=== PATIENT | female | born 1940 | race Caucasian/White ===

== ENCOUNTER 2018-11-30 13:20 | Emergency (ER) | payer MEDICARE ==
[2018-11-30 13:28] VITALS: BP 147/80
--- NOTE | 2018-11-30 14:11 | ER Document Report ---
ED Medical Screen (RME) - General Chief Complaint: Arm Pain Stated Complaint: LEFT ARM AND LEFT KNEE PAIN Time Seen by Provider: 11/30/18 13:54 Mode of Arrival: Ambulatory Information source: Patient Notes: 78-year-old female presents the emergency department with complaints of left arm pain, left leg pain, left knee pain. Patient states that a year ago she missed 3 steps and fell landing on her left side. She states that she has been have chronic pain ever since. Patient states that she does get steroid injections into her shoulder. Her last injection was 3 months ago. Patient states that she is having worsening pain in the left arm and thinks she needs another injection. She's from out of town and has no one to follow up with. She states that the Left shoulder pain is different from previous. It's now radiating across her back and into the right shoulder blade. Patient does complain of some left-sided chest pain. Patient has also noticed her left knee to be swollen. She denies any trauma or injury but has been walking more than normal. I have greeted and performed a rapid initial assessment of this patient. A comprehensive ED assessment and evaluation of the patient, analysis of test results and completion of the medical decision making process will be conducted by additional ED providers. PHYSICAL EXAMINATION: GENERAL: Well-appearing, well-nourished and in no acute distress. HEAD: Atraumatic, normocephalic. EYES: Pupils equal round extraocular movements intact, conjunctiva are normal. ENT: Nares patent NECK: Normal range of motion LUNGS: No respiratory distress. Anterior chest wall tenderness to palpation. Musculoskeletal: Decreased ROM of the L shoulder secondary to pain. Bilateral trapezius muscle tenderness to palpation. L knee tenderness to palpation. NEUROLOGICAL: Normal speech. PSYCH: Normal mood, normal affect. SKIN: Warm, Dry, normal turgor, no rashes or lesions noted. - Related Data Allergies/Adverse Reactions: No Known Allergies Allergy (Unverified 11/30/18 13:23) Past Medical History Renal/ Medical History: Denies: Hx Peritoneal Dialysis Physical Exam - Vital signs Vitals: Temp Pulse Resp BP Pulse Ox 98.0 F 108 H 24 H 147/80 H 96 11/30/18 13:27 11/30/18 13:27 11/30/18 13:27 11/30/18 13:27 11/30/18 13:27 Course - Vital Signs Vital signs: Temp Pulse Resp BP Pulse Ox 98.0 F 108 H 24 H 147/80 H 96 11/30/18 13:27 11/30/18 13:27 11/30/18 13:27 11/30/18 13:27 11/30/18 13:27
[2018-11-30 14:33] LABS: ABSOLUTE BASOPHILS # (AUTO) 0.1 10^3/uL (0.0-0.2); ABSOLUTE EOSINOPHILS # (AUTO) 0.2 10^3/uL (0.0-0.6); ABSOLUTE LYMPHOCYTES (AUTO) 1.5 10^3/uL (0.5-4.7); ABSOLUTE MONOCYTES (AUTO) 0.6 10^3/uL (0.1-1.4); ABSOLUTE NEUT (AUTO) 5.3 10^3/uL (1.7-8.2); BASOPHILS % (AUTO) 0.8 % (0-2); HEMATOCRIT 39.2 % (36.0-47.0); MEAN CORPUSCULAR HEMOGLOBIN 31.6 pg (27.0-33.4); MEAN CORPUSCULAR HGB CONC 33.1 g/dL (32.0-36.0); MEAN CORPUSCULAR VOLUME 95 fl (80-97); MONOCYTES % (AUTO) 8.3 % (3-13); PLATELET COUNT 264 10^3/uL (150-450); RED BLOOD COUNT 4.11 10^6/uL (3.72-5.28); RED CELL DISTRIBUTION WIDTH 13.4 % (11.5-14.0); SEGMENTED NEUTROPHILS % (AUTO) 68.9 % (42-78); TOTAL CELLS COUNTED % (AUTO) 100 %; WHITE BLOOD COUNT 7.7 10^3/uL (4.0-10.5)
[2018-11-30 14:54] LABS: ALANINE AMINOTRANSFERASE 25 U/L (9-52); ALBUMIN 4.2 g/dL (3.5-5.0); ALKALINE PHOSPHATASE 81 U/L (38-126); ANION GAP 10 (5-19); ASPARTATE AMINO TRANSFERASE 24 U/L (14-36); BILIRUBIN,DIRECT 0.2 mg/dL (0.0-0.4); BILIRUBIN,TOTAL 0.4 mg/dL (0.2-1.3); BLOOD UREA NITROGEN 25 mg/dL (7-20); CALCIUM 9.7 mg/dL (8.4-10.2); CARBON DIOXIDE 27 mmol/L (22-30); CHLORIDE 106 mmol/L (98-107); GLUCOSE 125 mg/dL (75-110); POTASSIUM 4.6 mmol/L (3.6-5.0); SODIUM 143.3 mmol/L (137-145); TOTAL PROTEIN 6.8 g/dL (6.3-8.2)
--- NOTE | 2018-11-30 14:59 | RADIOLOGY REPORT (SQ) ---
EXAM DESCRIPTION: CHEST SINGLE VIEW COMPLETED DATE/TIME: 11/30/2018 2:50 pm REASON FOR STUDY: L shoulder pain COMPARISON: Left shoulder films same date EXAM PARAMETERS: NUMBER OF VIEWS: One view. TECHNIQUE: Single frontal radiographic view of the chest acquired. RADIATION DOSE: NA LIMITATIONS: None. FINDINGS: LUNGS AND PLEURA: Elevated left hemidiaphragm. No acute infiltrates. No pleural effusion or pneumothorax. MEDIASTINUM AND HILAR STRUCTURES: No masses. Contour normal. HEART AND VASCULAR STRUCTURES: Heart normal in size. Normal vasculature. BONES: No acute findings. HARDWARE: None in the chest. OTHER: No other significant finding. IMPRESSION: Elevated left hemidiaphragm. No acute infiltrates. TECHNICAL DOCUMENTATION: JOB ID: [id number] [employer]- All Rights Reserved Reading location - IP/workstation name: [email or web address]
--- NOTE | 2018-11-30 15:01 | RADIOLOGY REPORT (SQ) ---
EXAM DESCRIPTION: SHOULDER LEFT 2 OR MORE VIEWS COMPLETED DATE/TIME: 11/30/2018 2:50 pm REASON FOR STUDY: pain COMPARISON: Chest films same date NUMBER OF VIEWS: Three views. TECHNIQUE: Internal rotation, external rotation, and Y view images acquired of the left shoulder. LIMITATIONS: None. FINDINGS: MINERALIZATION: Normal. BONES: No acute fracture or dislocation. No worrisome bone lesions. JOINTS: No glenohumeral dislocation. No acromioclavicular joint widening. VISUALIZED LUNGS AND RIBS: No pneumothorax. No rib fracture. SOFT TISSUES: No radiopaque foreign body. Elevated left hemidiaphragm likely chronic OTHER: No other significant finding. IMPRESSION: No acute findings. TECHNICAL DOCUMENTATION: JOB ID: [id number] [employer]- All Rights Reserved Reading location - IP/workstation name: [email or web address]
--- NOTE | 2018-11-30 15:02 | RADIOLOGY REPORT (SQ) ---
EXAM DESCRIPTION: KNEE LEFT 4 VIEW COMPLETED DATE/TIME: 11/30/2018 2:50 pm REASON FOR STUDY: left knee pain COMPARISON: None. NUMBER OF VIEWS: Four views. TECHNIQUE: AP, lateral, and both oblique radiographic images acquired of the left knee. LIMITATIONS: None. FINDINGS: MINERALIZATION: Normal. BONES: No acute fracture or dislocation. No worrisome bone lesions. JOINT: Trace suprapatellar knee joint effusion. Very mild patellofemoral, medial, and lateral compar tment joint space narrowing without bulky bony spurring SOFT TISSUES: No soft tissue swelling. No radio-opaque foreign body. OTHER: No other significant finding. IMPRESSION: No acute fracture or malalignment TECHNICAL DOCUMENTATION: JOB ID: [id number] [employer]- All Rights Reserved Reading location - IP/workstation name: [email or web address]
--- NOTE | 2018-11-30 15:44 | ER Document Report ---
ED General - General Chief Complaint: Arm Pain Stated Complaint: LEFT ARM AND LEFT KNEE PAIN Time Seen by Provider: 11/30/18 13:54 Primary Care Provider: RAMON PERALES MD [ACTIVE STAFF] - Follow up as needed Mode of Arrival: Ambulatory - HPI Patient complains to provider of: Left shoulder and left knee pain and swelling Onset/Duration: Gradual Quality of pain: Achy Severity: Moderate Pain Level: 3 Associated symptoms: Body/muscle aches Exacerbated by: Movement, Walking Relieved by: Denies Similar symptoms previously: Yes Recently seen / treated by doctor: No Notes: Patient is a 78-year-old female presenting to the emergency room today complaining of left shoulder and left knee pain, symptoms have been chronic in nature and in fact she received cortisone injections in these 2 areas in June or July of last year from her orthopedic surgeon in [place], she is currently visiting the area with her daughter where she will stay for the winter until December, she reports that she feels as though the cortisone injections have worn off and now her pain is back, she has intermittent increased swelling to the left knee secondary to increased ambulation and weightbearing on this knee, she denies any recent fall or injury, no fevers, she did arrive in the area in October via airplane having switched airplanes from [place] to [place] and then [place] to [place] and then [place] to [place], so none of her flights were for more than a few hours each, patient denies any history of DVT or PE previously but her brother does have a history of DVT, denies chest pain or shortness of breath - Related Data Allergies/Adverse Reactions: No Known Allergies Allergy (Unverified 11/30/18 13:23) Past Medical History - General Information source: Patient - Social History Smoking Status: Former Smoker Family History: Reviewed & Not Pertinent Patient has suicidal ideation: No Patient has homicidal ideation: No Renal/ Medical History: Denies: Hx Peritoneal Dialysis Review of Systems - Review of Systems Constitutional: No symptoms reported EENT: No symptoms reported Cardiovascular: No symptoms reported Respiratory: No symptoms reported Gastrointestinal: No symptoms reported Genitourinary: No symptoms reported Female Genitourinary: No symptoms reported Musculoskeletal: See HPI Skin: No symptoms reported Hematologic/Lymphatic: No symptoms reported Neurological/Psychological: No symptoms reported -: Yes All other systems reviewed and negative Physical Exam - Vital signs Vitals: Temp Pulse Resp BP Pulse Ox 98.0 F 108 H 24 H 147/80 H 96 11/30/18 13:27 11/30/18 13:27 11/30/18 13:27 11/30/18 13:27 11/30/18 13:27 Interpretation: Normal - General General appearance: Appears well, Alert - HEENT Head: Normocephalic, Atraumatic Eyes: Normal Pupils: PERRL - Respiratory Respiratory status: No respiratory distress Chest status: Nontender Breath sounds: Normal Chest palpation: Normal - Cardiovascular Rhythm: Regular Heart sounds: Normal auscultation Murmur: No - Abdominal Inspection: Normal Distension: No distension Bowel sounds: Normal Tenderness: Nontender Organomegaly: No organomegaly - Back Back: Normal, Nontender - Extremities General upper extremity: Normal color, Normal temperature General lower extremity: Normal color, Normal temperature. No: Fidencio's sign Shoulder: Tender - Tender to palpate left shoulder anteriorly, pain with range of motion testing, no deformity, distal sensation and motor is intact with 2+ radial pulses Knee: Tender - Moderate swelling to left knee, pain with range of motion testing and pressure on the patella, distal sensation and motor is intact Calf: Tender - Left - Neurological Neuro grossly intact: Yes Cognition: Normal Orientation: AAOx4 Heber Coma Scale Eye Opening: Spontaneous Heber Coma Scale Verbal: Oriented Heber Coma Scale Motor: Obeys Commands Sandra Coma Scale Total: 15 Speech: Normal Motor strength normal: LUE, RUE, LLE, RLE Sensory: Normal - Psychological Associated symptoms: Normal affect, Normal mood - Skin Skin Temperature: Warm Skin Moisture: Dry Skin Color: Normal Course - Re-evaluation Re-evalutation: 11/30/18 16:37 Lab and imaging findings discussed with patient and daughter at bedside which are unremarkable except for some arthritic degenerative changes in the shoulder and knee, likely the cause of patient's symptoms, she was provided with an Oscar wrap as well as instructions for follow-up and advised to return if any additional concerns, patient acknowledges understanding and agreement with this plan - Vital Signs Vital signs: Temp Pulse Resp BP Pulse Ox 98.0 F 108 H 24 H 147/80 H 96 11/30/18 13:27 11/30/18 13:27 11/30/18 13:27 11/30/18 13:27 01/30/19 13:27 - Laboratory Result Diagrams: 11/30/18 14:12 11/30/18 14:12 Laboratory results interpreted by me: 11/30/18 14:12 BUN 25 H Est GFR ( Amer) 52 L Est GFR (Non-Af Amer) 43 L Glucose 125 H - Diagnostic Test Radiology reviewed: Image reviewed, Reports reviewed Procedures - Immobilization Left Knee Time completed: 15:53 Pre-Proc Neuro Vasc Exam: Normal Immobilizer type: Oscar wrap Performed by: PCT Post-Proc Neuro Vasc Exam: Normal Alignment checked and good: Yes Discharge - Discharge Clinical Impression: Left shoulder pain Qualifiers: Chronicity: chronic Qualified Code(s): M25.512 - Pain in left shoulder Left knee pain Qualifiers: Chronicity: chronic Qualified Code(s): M25.562 - Pain in left knee Osteoarthritis Qualifiers: Osteoarthritis location: knee Osteoarthritis type: primary Laterality: left Qualified Code(s): M17.12 - Unilateral primary osteoarthritis, left knee Condition: Stable Disposition: HOME, SELF-CARE Instructions: Arthritis ([facility]), Suspected Internal Knee Injury ([facility]), Knee Effusion ([facility]), Exercise Program for the Shoulder ([facility]) Additional Instructions: Follow up with your primary care provider and an orthopedic surgeon in one to 2 days. Return to the emergency room immediately if symptoms worsen or any additional concerns. Ice and elevate the affected extremity. Referrals: RAMON PERALES MD [ACTIVE STAFF] - Follow up as needed
--- NOTE | 2018-11-30 16:44 | XCELERA REPORT ---
[address] [place] [facility] [id number] Lower Extremity Venous Evaluation Procedure: Color flow and duplex imaging of the veins of the left lower extremity as well as the right Common Femoral vein. Right Sided Venous Evaluation The right common femoral vein is fully compressible. Spontaneous and phasic flow is present in the right common femoral vein. Left Sided Venous Evaluation Normal vessel filling wall to wall, compression and augmentation as well as Colour flow down to the infrageniculate veins. Interpretation Summary No duplex evidence of DVT or obstruction in the left lower extremity nor in the right Common Femoral vein. Name: SUSI CHILDERS Age: 78 yrs Gender: Female : 1940 Patient Status: Preadmit Patient Location: ER Study Date: 11/30/2018 04:18 PM Reason For Study: left leg pain/swelling Ordering Physician: KYLAH SERRANO Performed By: Joseline Lackey : KYLAH SERRANO > Shane Carter
== END 2018-11-30 16:30 | disposition home or self-care (01) ==
LOC: ER 13:20
DX: M25.512 Pain in left shoulder (principal); M25.562 Pain in left knee; M17.12 Unilateral primary osteoarthritis, left knee
CPT/HCPCS: 36415; 71045; 80053; 84484; 85025; 93971; 99284